=== PATIENT | male | born 1995 | race Hispanic/Latino ===

== ENCOUNTER 2023-05-24 00:06 | Emergency (ER) | payer OTHER ==
[~2023-05-24] VITALS: Ht 172.7 cm; Wt 68.0 kg
[2023-05-24] MEDS ORDERED: ONDANSETRON 4MG INJ IVP ONE (01:30)
[2023-05-24] MEDS ORDERED: MORPHINE 4 MG SYG IVP ONE (01:30)
[2023-05-24] MEDS ORDERED: 0.9%NACL 1000ML 1,000 ML IV ONE (01:30)
[2023-05-24] MEDS ORDERED: TETANUS/DIPHTHERIA TOXOID [ADULT] 0.5 ML VIAL IM ONE (02:30)
[2023-05-24] MEDS ORDERED: FAMOTIDINE 20MG VIAL IV ONE (02:30)
[2023-05-24] MEDS ORDERED: KETOROLAC 30MG VIAL (30MG/ML) IVP ONE (02:30)
[2023-05-24] MEDS ORDERED: CEFTRIAXONE 2GM VIAL IVPB ONE (02:30)
[2023-05-24] MEDS ORDERED: CEPH500B PO (03:59)
[2023-05-24 04:10] VITALS: BP 139/74
== END 2023-05-24 04:27 | disposition home or self-care (01) ==
LOC: EDH 00:06
DX: S01.81XA Laceration without foreign body of other part of head, initial encounter (principal); S06.9XAA Unspecified intracranial injury with loss of consciousness status unknown, initial encounter; T74.21XA Adult sexual abuse, confirmed, initial encounter; Y93.89 Activity, other specified; Y92.89 Other specified places as the place of occurrence of the external cause; Y99.8 Other external cause status
CPT/HCPCS: 99285; 70450; 96365; 96375; 71045; 96361; 90714; 72170; 72125; 70486; 90471; 12015; J3490; J7030; J0696; J2405; J2270; J1885

== ENCOUNTER 2023-10-23 05:38 | Emergency (ER) | payer OTHER ==
[~2023-10-23] VITALS: Ht 172.7 cm; Wt 66.7 kg
[~2023-10-23 05:38] MED LIST: CEPH500B PO
[2023-10-23 05:39] VITALS: RESP 16
== END 2023-10-23 06:53 | disposition left against medical advice (07) ==
LOC: EDH 05:38
DX: S61.411A Laceration without foreign body of right hand, initial encounter (principal); Z53.21 Procedure and treatment not carried out due to patient leaving prior to being seen by health care provider; X58.XXXA Exposure to other specified factors, initial encounter; Y93.89 Activity, other specified; Y92.89 Other specified places as the place of occurrence of the external cause; Y99.8 Other external cause status
CPT/HCPCS: 73130; 99281

== ENCOUNTER 2023-10-24 12:09 | Emergency (ER) | payer OTHER ==
[~2023-10-24] VITALS: Ht 172.7 cm; Wt 68.0 kg
[2023-10-24 12:13] VITALS: BP 155/103; PULSE 50; RESP 17
[2023-10-24] MEDS ORDERED: IBUPROFEN 800 MG TAB PO ONE (12:30)
[2023-10-24] MEDS ORDERED: TETANUS/DIPHTHERIA TOXOID [ADULT] 0.5 ML VIAL IM ONE (12:30)
[2023-10-24] MEDS ORDERED: CEPHALEXIN 500 MG CAPSULE PO ONE (12:30)
== END 2023-10-24 12:31 | disposition home or self-care (01) ==
LOC: EDH 12:09
DX: S61.411A Laceration without foreign body of right hand, initial encounter (principal); X58.XXXA Exposure to other specified factors, initial encounter; Y93.89 Activity, other specified; Y92.89 Other specified places as the place of occurrence of the external cause; Y99.8 Other external cause status
CPT/HCPCS: 99281